=== PATIENT | male | born 1945 | race Caucasian/White ===

== ENCOUNTER → 2017-08-31 | Outpatient (RCR) | payer MEDICARE ==
[2017-08-01 14:17] LABS: CREATININE SERUM 1.19 MG/DL (0.60-1.30)
== END | disposition home or self-care (01) ==
LOC: ONC 05-17 13:31
PROVIDERS: ATTEND Radiology Radiation Oncology
DX: Z51.0 Encounter for antineoplastic radiation therapy (principal); C61 Malignant neoplasm of prostate
CPT/HCPCS: 77300; 77301; 77334; 77336; 77338; 77385; 82565; 84520; 99214

== ENCOUNTER 2017-11-14 15:02 | Outpatient (RCR) | payer MEDICARE | END 2017-11-30 | disposition home or self-care (01) | LOC: ONC 15:02 | PROVIDERS: ATTEND Radiology Radiation Oncology | DX: Z51.0 Encounter for antineoplastic radiation therapy (principal); C61 Malignant neoplasm of prostate | CPT/HCPCS: 77300; 77334; 77336; 77385; 99213 ==

== ENCOUNTER 2021-03-29 12:56 | Outpatient (RCR) | payer MEDICARE | END 2021-06-08 | disposition home or self-care (01) | LOC: ONC 12:56 | PROVIDERS: ATTEND Radiology Radiation Oncology | DX: Z51.0 Encounter for antineoplastic radiation therapy (principal); C61 Malignant neoplasm of prostate; C79.51 Secondary malignant neoplasm of bone; I10 Essential (primary) hypertension; E78.00 Pure hypercholesterolemia, unspecified; Z87.891 Personal history of nicotine dependence | CPT/HCPCS: 77290; 77295; 77300; 77334; G0463; 77280; 77336; 77470; 99204; 99214 ==